=== PATIENT | female | born 1990 | race Caucasian/White ===

== ENCOUNTER 2016-06-22 16:47 | Emergency (ER) | payer MEDICAID ==
[~2016-06-22] VITALS: Ht 165.1 cm; Wt 87.0 kg
[~2016-06-22 16:47] MED LIST: KONS520C PO; PROM25TA5 PO; [UNRECOGNIZED DRUG - CODE] PR
[2016-06-22 16:51] VITALS: BP 137/81; PULSE 105; RESP 14; TEMP 98.2; O2SAT 100
== END 2016-06-22 18:15 | disposition left against medical advice (07) ==
LOC: NED 16:47
DX: R55 Syncope and collapse (principal); Z53.21 Procedure and treatment not carried out due to patient leaving prior to being seen by health care provider
CPT/HCPCS: 99281

== ENCOUNTER 2017-06-15 11:54 | Emergency (ER) | payer MEDICAID ==
[2017-06-15 11:56] VITALS: BP 121/67; PULSE 108; RESP 16; TEMP 99.8; O2SAT 99
[2017-06-15] MEDS ORDERED: SODIUM CHLOR 0.9% 1000 ML INJ 1,000 ML IV ONE (12:26)
[2017-06-15] MEDS ORDERED: RESP: ALBUTEROL 2.5 MG/3 ML NEB (SCH) INH ONE (12:30)
[2017-06-15] MEDS ORDERED: SODIUM CHLORIDE 0.9% FLUSH 10 ML FLUSH IVF PRN (12:30)
[2017-06-15] MEDS ORDERED: predniSONE 20 MG TAB PO ONE (12:30)
[2017-06-15] MEDS ORDERED: MECLIZINE HCL 25 MG TAB PO ONE (12:30)
[2017-06-15 13:27] VITALS: BP_SYST 108; BP_SYST 111; BP_SYST 149; BP_DIAS 57; BP_DIAS 61; BP_DIAS 62; RESP 17; RESP 18
[2017-06-15 13:43] LABS: AUTOMATED NEUTROPHIL # 8.8 TH/MM3 (1.8-7.7); BASOPHIL # 0.1 TH/MM3 (0-0.2); BASOPHIL % 0.5 % (0.0-2.0); EOSINOPHIL # 0.1 TH/MM3 (0-0.4); EOSINOPHIL % 0.7 % (0.0-4.0); HEMATOCRIT 33.9 % (35.0-46.0); HEMOGLOBIN 11.2 GM/DL (11.6-15.3); LYMPH % 11.4 % (9.0-44.0); LYMPHOCYTE # 1.2 TH/MM3 (1.0-4.8); MEAN CELL VOLUME 81.6 FL (80.0-100.0); MEAN CORPUSCULAR HGB CONC 33.1 % (32.0-36.0); MEAN PLATELET VOLUME 7.2 FL (7.0-11.0); MONO % 5.4 % (0.0-8.0); MONOCYTE # 0.6 TH/MM3 (0-0.9); PLATELET COUNT 311 TH/MM3 (150-450); RED BLOOD COUNT 4.15 MIL/MM3 (4.00-5.30); RED CELL DISTRIBUTION WIDTH 14.5 % (11.6-17.2); WHITE BLOOD COUNT 10.7 TH/MM3 (4.0-11.0)
[2017-06-15 13:48] LABS: BILIRUBIN, URINE NEG (NEG); BLOOD, URINE SMALL (NEG); GLUCOSE,URINE NEG (NEG); HYALINE CAST, URINE 1 /lpf (RARE); KETONE, URINE NEG (NEG); MUCUS URINE FEW /lpf (OCC); NITRITE,URINE NEG (NEG); SQUAMOUS EPITHELIAL CELL URINE 1 /hpf (0-5); URINE COLOR YELLOW (YELLW/STRAW); URINE LEUKOCYTE ESTERASE NEG (NEG)
--- NOTE | 2017-06-15 14:00 | RADRPT ---
EXAM DATE/TIME: 06/15/2017 13:03 [place] COMPARISON: No previous studies available for comparison. INDICATIONS : Cough, syncope at work MEDICAL HISTORY : None. SURGICAL HISTORY : None. ENCOUNTER: Initial ACUITY: 1 day PAIN SCORE: 0/10 LOCATION: Bilateral chest FINDINGS: A single view of the chest demonstrates the lungs to be symmetrically aerated without evidence of mas s, infiltrate or effusion. The cardiomediastinal contours are unremarkable. Osseous structures are intact. CONCLUSION: 1. No acute cardiopulmonary disease. Wing Roberto MD on June 15, 2017 at 13:57 Board Certified Radiologist. This report was verified electronically.
[2017-06-15 14:02] LABS: BICARBONATE 24.4 MEQ/L (21.0-32.0); CALCIUM 8.8 MG/DL (8.5-10.1); CREATININE 0.69 MG/DL (0.50-1.00)
--- NOTE | 2017-06-15 14:18 | PD ---
HPI Chief Complaint: Syncope/Near-Syncope Time Seen by Provider: 12:15 Travel History International Travel<30 days: No Contact w/Intl Traveler<30days: No Traveled to known affect area: No History of Present Illness HPI 27-year-old female presents to the emergency Department with complaint of syncopal episode while at work today. Syncopal episode was witnessed. She did not fall to the floor. When she came to she was leaning up against a wall. He says prior to the syncopal episode she heard loud buzzing, felt cold, and then hot. Reports fainting 8 months ago also. She denies chest pain, shortness of breath, headache. Reports lightheadedness and dizziness that is worse with standing up. Denies heart palpitations. Denies body aches, nasal congestion him a sore throat. Reports cough 2 weeks. Denies change in mentation, confusion, disorientation, slurred speech. Denies change in gait. Denies focal deficits or weakness. Denies dysuria. Reports feeling nauseated without vomiting. Nausea is worse with standing up. Last menses 3 weeks ago. Denies contraception use. No known allergies. History of childhood asthma. No primary care provider. Has no other medical complaints. No other modifying factors or associated signs and symptoms. PFSH Past Medical History Asthma: Yes (CHILDHOOD) Diminished Hearing: No Immunizations Current: Yes Influenza Vaccination: Yes ?: Not : 4 Para: 3 Miscarriage: 1 Social History Alcohol Use: No Tobacco Use: Yes Substance Use: No Allergies-Medications (Allergen,Severity, Reaction): Coded Allergies: No Known Allergies (Verified Adverse Reaction, Unknown, 06/15/17) Reported Meds & Prescriptions Reported Meds & Active Scripts Active Prednisone 20 Mg Tab 40 Mg PO DIRECTED 5 Days Phenergan 25 mg (Promethazine HCl) 25 Mg Tab 25 Mg PO TID Preparation H (Phenylephrine-Shark Liver Oil-) H Sup 1 Supp MS BID 10 Days Metamucil (Psyllium Hydrophilic Mucilloid) 0.52 Gm Cap 1 Cap PO DAILY 30 Days Review of Systems Except as stated in HPI: all other systems reviewed are Neg Physical Exam Narrative GENERAL: Well-nourished, well-developed female patient, in no acute distress SKIN: Warm and dry. HEAD: Atraumatic. Normocephalic. No facial droop noted. Tongue midline. Finger to nose test normal. EYES: Pupils equal and round at 4 mm with brisk reaction. No scleral icterus. No injection or drainage. PERRLA. EOMI. ENT: Mucosa pink and moist. Airway patent. NECK: Trachea midline. No lymphadenopathy. CARDIOVASCULAR: Regular rate and rhythm. No murmur appreciated. RESPIRATORY: No accessory muscle use. Clear to auscultation. Breath sounds equal bilaterally. GASTROINTESTINAL: Abdomen soft, non-tender, nondistended. Hepatic and splenic margins not palpable. Bowel sounds are active 4 quadrants. MUSCULOSKELETAL: No obvious deformities. No clubbing. No cyanosis. No edema. NEUROLOGICAL: Awake and alert. Oriented 3. No obvious cranial nerve deficits. Motor grossly within normal limits. Normal speech. No ataxia. No mid -line drift. No upper or lower extremity drift. Moves all extremities. 5/5 strength to all extremities. PSYCHIATRIC: Appropriate mood and affect; insight and judgment normal. Data Data Last Documented VS Vital Signs Date Time Temp Pulse Resp B/P (MAP) Pulse Ox O2 Delivery O2 Flow Rate FiO2 06/15/17 15:44 89 17 102/60 (74) 97 06/15/17 12:15 Room Air 06/15/17 11:56 99.8 Orders Orders Electrocardiogram (06/15/17 12:26) Basic Metabolic Panel (Bmp) (06/15/17 12:26) Ed Urine Pregnancytest Poc (06/15/17 12:26) Complete Blood Count With Diff (06/15/17 12:26) Urinalysis - C+S If Indicated (06/15/17 12:26) Iv Access Insert/Monitor (06/15/17 12:26) Meclizine (Antivert) (06/15/17 12:30) Sodium Chloride 0.9% Flush (Ns Flush) (06/15/17 12:30) Sodium Chlor 0.9% 1000 Ml Inj (Ns 1000 M (06/15/17 12:26) Orthostatic Vital Signs (06/15/17 12:26) Chest, Single Ap (06/15/17 12:26) Prednisone (Deltasone) (06/15/17 12:30) Albuterol Neb (Albuterol Neb) (06/15/17 12:30) Influenzae A/B Antigen (06/15/17 13:15) Ed Discharge Order (06/15/17 15:01) Labs Laboratory Tests Test 06/15/17 13:10 White Blood Count 10.7 TH/MM3 Red Blood Count 4.15 MIL/MM3 Hemoglobin 11.2 GM/DL Hematocrit 33.9 % Mean Corpuscular Volume 81.6 FL Mean Corpuscular Hemoglobin 27.0 PG Mean Corpuscular Hemoglobin Concent 33.1 % Red Cell Distribution Width 14.5 % Platelet Count 311 TH/MM3 Mean Platelet Volume 7.2 FL Neutrophils (%) (Auto) 82.0 % Lymphocytes (%) (Auto) 11.4 % Monocytes (%) (Auto) 5.4 % Eosinophils (%) (Auto) 0.7 % Basophils (%) (Auto) 0.5 % Neutrophils # (Auto) 8.8 TH/MM3 Lymphocytes # (Auto) 1.2 TH/MM3 Monocytes # (Auto) 0.6 TH/MM3 Eosinophils # (Auto) 0.1 TH/MM3 Basophils # (Auto) 0.1 TH/MM3 CBC Comment DIFF FINAL Differential Comment Urine Color YELLOW Urine Turbidity CLEAR Urine pH 6.0 Urine Specific [place] 1.009 Urine Protein NEG mg/dL Urine Glucose (UA) NEG mg/dL Urine Ketones NEG mg/dL Urine Occult Blood SMALL Urine Nitrite NEG Urine Bilirubin NEG Urine Urobilinogen LESS THAN 2.0 MG/DL Urine Leukocyte Esterase NEG Urine RBC 2 /hpf Urine WBC 1 /hpf Urine Squamous Epithelial Cells 1 /hpf Urine Hyaline Casts 1 /lpf Urine Mucus FEW /lpf Microscopic Urinalysis Comment CULT NOT INDICATED Blood Urea Nitrogen 8 MG/DL Creatinine 0.69 MG/DL Random Glucose 93 MG/DL Calcium Level 8.8 MG/DL Sodium Level 135 MEQ/L Potassium Level 3.6 MEQ/L Chloride Level 103 MEQ/L Carbon Dioxide Level 24.4 MEQ/L Anion Gap 8 MEQ/L Estimat Glomerular Filtration Rate 101 ML/MIN [facility] Medical Decision Making Medical Screen Exam Complete: Yes Emergency Medical Condition: Yes Medical Record Reviewed: Yes Differential Diagnosis Syncope, near syncope, electrolyte imbalance, arrhythmia Narrative Course 27-year-old female with witnessed syncopal episode. Neuro exam is unremarkable. Patient has wheezing on auscultation of the lungs. She denies chest pain or shortness of breath. Reports cough 2 weeks. Albuterol nebulizer , Deltasone, EKG, urinalysis, UPT, chest x-ray and influenza ordered. 1400: EKG with normal sinus rhythm; without ST elevation or depression; reviewed by Dr. Abbasi. 1412: CBC, BMP unremarkable. Chest x-ray with no acute findings. Urinalysis without signs of infection. Influenza negative. Dr. Abbasi evaluated the patient and cleared the patient for discharge. Deltasone prescribed for home. Instructed patient to follow up with primary care provider. Patient verbalizes understanding and agreement with treatment plan. Patient is medically cleared and stable for discharge. Discussed reasons to return to the emergency department. Patient agrees with treatment plan. The patients vital signs are stable and the patient is stable for outpatient follow-up and treatment. Patient discharged home, stable and in no acute distress. Diagnosis Primary Impression: Syncope Qualified Codes: R55 - Syncope and collapse Referrals: [facility] Primary Care Physician Patient Instructions: Acute Bronchitis (ED), General Instructions, Syncope (ED) Med/Other Pt SpecificInfo: Prescription(s) given Scripts Prednisone (Prednisone) 20 Mg Tab 40 MG PO DIRECTED for 5 Days, TAB 0 Refills Prov: Anusha Abbasi MD 06/15/17 Disposition: DISCHARGE HOME Condition: Stable Ruby Moreno Jun 15, 2017 14:18
--- NOTE | 2017-06-15 15:01 | PD ---
Data Data Last Documented VS Vital Signs Date Time Temp Pulse Resp B/P (MAP) Pulse Ox O2 Delivery O2 Flow Rate FiO2 06/15/17 13:27 110 17 108/61 (77) 108 18 111/57 (75) 132 18 149/62 (91) 06/15/17 12:15 Room Air 06/15/17 11:56 99.8 99 Orders Orders Electrocardiogram (06/15/17 12:26) Basic Metabolic Panel (Bmp) (06/15/17 12:26) Ed Urine Pregnancytest Poc (06/15/17 12:26) Complete Blood Count With Diff (06/15/17 12:26) Urinalysis - C+S If Indicated (06/15/17 12:26) Iv Access Insert/Monitor (06/15/17 12:26) Meclizine (Antivert) (06/15/17 12:30) Sodium Chloride 0.9% Flush (Ns Flush) (06/15/17 12:30) Sodium Chlor 0.9% 1000 Ml Inj (Ns 1000 M (06/15/17 12:26) Orthostatic Vital Signs (06/15/17 12:26) Chest, Single Ap (06/15/17 12:26) Prednisone (Deltasone) (06/15/17 12:30) Albuterol Neb (Albuterol Neb) (06/15/17 12:30) Influenzae A/B Antigen (06/15/17 13:15) Labs Laboratory Tests Test 06/15/17 13:10 White Blood Count 10.7 TH/MM3 Red Blood Count 4.15 MIL/MM3 Hemoglobin 11.2 GM/DL Hematocrit 33.9 % Mean Corpuscular Volume 81.6 FL Mean Corpuscular Hemoglobin 27.0 PG Mean Corpuscular Hemoglobin Concent 33.1 % Red Cell Distribution Width 14.5 % Platelet Count 311 TH/MM3 Mean Platelet Volume 7.2 FL Neutrophils (%) (Auto) 82.0 % Lymphocytes (%) (Auto) 11.4 % Monocytes (%) (Auto) 5.4 % Eosinophils (%) (Auto) 0.7 % Basophils (%) (Auto) 0.5 % Neutrophils # (Auto) 8.8 TH/MM3 Lymphocytes # (Auto) 1.2 TH/MM3 Monocytes # (Auto) 0.6 TH/MM3 Eosinophils # (Auto) 0.1 TH/MM3 Basophils # (Auto) 0.1 TH/MM3 CBC Comment DIFF FINAL Differential Comment Urine Color YELLOW Urine Turbidity CLEAR Urine pH 6.0 Urine Specific [place] 1.009 Urine Protein NEG mg/dL Urine Glucose (UA) NEG mg/dL Urine Ketones NEG mg/dL Urine Occult Blood SMALL Urine Nitrite NEG Urine Bilirubin NEG Urine Urobilinogen LESS THAN 2.0 MG/DL Urine Leukocyte Esterase NEG Urine RBC 2 /hpf Urine WBC 1 /hpf Urine Squamous Epithelial Cells 1 /hpf Urine Hyaline Casts 1 /lpf Urine Mucus FEW /lpf Microscopic Urinalysis Comment CULT NOT INDICATED Blood Urea Nitrogen 8 MG/DL Creatinine 0.69 MG/DL Random Glucose 93 MG/DL Calcium Level 8.8 MG/DL Sodium Level 135 MEQ/L Potassium Level 3.6 MEQ/L Chloride Level 103 MEQ/L Carbon Dioxide Level 24.4 MEQ/L Anion Gap 8 MEQ/L Estimat Glomerular Filtration Rate 101 ML/MIN MDM Supervised Visit with TAMIKA: Yes Narrative Course The history, exam, and medical decision-making in the associated midlevel provider note were completed with my assistance. I reviewed and agree with the findings presented. I attest that I had a [id number] encounter with the patient on the same day, and personally performed and documented my assessment and findings in the medical record. *My assessment and Findings: This is a 27-year-old female who presents to the emergency department having had an episode where she passed out at work. She says she has passed out once before. Here her blood work is all reassuring EKG is unremarkable with no sign of arrhythmia. She does appear orthostatic. She is given a liter of IV fluid. I suspect this was in the setting of dehydration but I did ask her to follow-up with the primary care physician for further workup. Patient will be discharged home. Diagnosis Primary Impression: Syncope Qualified Codes: R55 - Syncope and collapse Patient Instructions: General Instructions Additional Instruction: If you develop severe chest pain, shortness of breath, sweating, lightheadedness , dizziness or difficulty breathing return to the emergency department immediately. Followup with your primary care physician in 2-3 days if your symptoms are not resolved. Med/Other Pt SpecificInfo: No Change to Meds Disposition: 01 DISCHARGE HOME Condition: Stable Anusha Abbasi MD Jun 15, 2017 15:01
[2017-06-15] MEDS ORDERED: PRED20 PO (15:02)
[2017-06-15 15:44] VITALS: BP 102/60
--- NOTE | 2017-06-16 19:42 | EKG ---
Date Performed: 06/15/2017 Time Performed: 13:51:29 PTAGE: 27 years EKG: Sinus rhythm NORMAL ECG Since the prior tracing, there has been no significant change PREVIOUS TRACING : 09/20/2013 14.34 DOCTOR: Eagle Bledsoe Interpretating Date/Time 06/16/2017 19:42:21
== END 2017-06-15 15:56 | disposition home or self-care (01) ==
LOC: NEPD 11:54
DX: R55 Syncope and collapse (principal); R42 Dizziness and giddiness; R11.0 Nausea; J45.909 Unspecified asthma, uncomplicated; Z79.899 Other long term (current) drug therapy; Z72.0 Tobacco use
CPT/HCPCS: 71045; 80048; 81001; 84703; 85025; 87804; 93005; 94664; 99285; J7030; J7512; J7613